=== PATIENT | female | born 1930 | race American Indian/Alaskan Native ===

== ENCOUNTER 2017-05-22 12:12 | Emergency (ER) | payer MEDICARE ==
[2017-05-22 13:41] VITALS: BP 112/79
--- NOTE | 2017-05-22 13:53 | Emergency Department Report ---
ED Medical Clearance HPI - General Chief complaint: Medical Clearance Stated complaint: BLOOD WORK/ADMIT Time Seen by Provider: 05/22/17 13:47 Source: patient Mode of arrival: Ambulatory - History of Present Illness Initial comments: A 87-year-old female here with singing and confusion. Patient has a known history of dementia and is attempting to receive medical clearance to go to a psychiatric facility. According to family she has no change from her baseline behavior and she is currently at her baseline. She has no complaints. -: Gradual Reason for Medical Clearance: medical condition, psychiatric condition Traumatic Symptoms: denies traumatic injury Treatments Prior to Arrival: none Allergies/Adverse reactions: Allergies Allergy/AdvReac Type Severity Reaction Status Date / Time No Known Allergies Allergy Unverified 05/22/17 13:34 ED Review of Systems ROS: Stated complaint: BLOOD WORK/ADMIT Other details as noted in HPI Comment: All other systems reviewed and negative Constitutional: no symptoms reported. denies: chills, fever, malaise ENT: denies: ear pain, throat pain, hearing loss Respiratory: denies: cough, orthopnea Cardiovascular: denies: chest pain, palpitations Gastrointestinal: denies: abdominal pain, nausea Skin: denies: rash, lesions ED Past Medical Hx - Social History Smoking Status: Never Smoker Substance Use Type: None ED Physical Exam - General Limitations: No Limitations General appearance: alert, in no apparent distress - Head Head exam: Present: atraumatic, normocephalic - Eye Eye exam: Present: normal appearance - ENT ENT exam: Present: mucous membranes moist - Neck Neck exam: Present: normal inspection - Respiratory Respiratory exam: Present: normal lung sounds bilaterally. Absent: respiratory distress - Cardiovascular Cardiovascular Exam: Present: regular rate, normal rhythm. Absent: systolic murmur, diastolic murmur, rubs, gallop - GI/Abdominal GI/Abdominal exam: Present: soft, normal bowel sounds - Extremities Exam Extremities exam: Present: normal inspection - Back Exam Back exam: Present: normal inspection - Neurological Exam Neurological exam: Present: alert (oriented 1), other (patient with mild confusion) - Psychiatric Psychiatric exam: Present: normal affect, normal mood - Skin Skin exam: Present: warm, dry, intact, normal color. Absent: rash ED Course Vital Signs 05/22/17 13:35 Temperature 98.4 F Pulse Rate 65 Respiratory 16 Rate Blood Pressure 112/79 O2 Sat by Pulse 100 Oximetry ED Medical Decision Making - Lab Data Result diagrams: 05/22/17 13:45 05/22/17 13:45 Laboratory Results - last 24 hr 05/22/17 05/22/17 05/22/17 13:45 13:45 13:45 WBC 5.1 RBC 4.48 Hgb 13.3 Hct 40.9 MCV 91 MCH 30 MCHC 33 RDW 13.4 Plt Count 145 Lymph % (Auto) 20.8 [place] % (Auto) 8.3 H Eos % (Auto) 0.5 Baso % (Auto) 0.5 Lymph # 1.1 L [place] # 0.4 Eos # 0.0 Baso # 0.0 Seg Neutrophils % 69.9 Seg Neutrophils # 3.6 Sodium 135 L Potassium 4.4 Chloride 99.2 Carbon Dioxide 28 Anion Gap 12 BUN 22 H Creatinine 1.3 H Estimated GFR 47 BUN/Creatinine Ratio 16.92 Glucose 306 H Calcium 8.9 Urine Color Urine Turbidity Urine pH Ur Specific [place] Urine Protein Urine Glucose (UA) Urine Ketones Urine Blood Urine Nitrite Urine Bilirubin Urine Urobilinogen Ur Leukocyte Esterase Urine WBC (Auto) Urine RBC (Auto) U Epithel Cells (Auto) Urine Mucus Urine Opiates Screen Urine Methadone Screen Ur Barbiturates Screen Ur Phencyclidine Scrn Ur Amphetamines Screen U Benzodiazepines Scrn Urine Cocaine Screen U Marijuana (THC) Screen Plasma/Serum Alcohol < 0.01 05/22/17 05/22/17 14:40 14:40 WBC RBC Hgb Hct MCV MCH MCHC RDW Plt Count Lymph % (Auto) [place] % (Auto) Eos % (Auto) Baso % (Auto) Lymph # [place] # Eos # Baso # Seg Neutrophils % Seg Neutrophils # Sodium Potassium Chloride Carbon Dioxide Anion Gap BUN Creatinine Estimated GFR BUN/Creatinine Ratio Glucose Calcium Urine Color Yellow Urine Turbidity Clear Urine pH 5.0 Ur Specific [place] 1.020 Urine Protein <15 mg/dl Urine Glucose (UA) 150 Urine Ketones Neg Urine Blood Neg Urine Nitrite Neg Urine Bilirubin Neg Urine Urobilinogen < 2.0 Ur Leukocyte Esterase Neg Urine WBC (Auto) 1.0 Urine RBC (Auto) 1.0 U Epithel Cells (Auto) 14.0 H Urine Mucus Few Urine Opiates Screen Presumptive negative Urine Methadone Screen Presumptive negative Ur Barbiturates Screen Presumptive negative Ur Phencyclidine Scrn Presumptive negative Ur Amphetamines Screen Presumptive negative U Benzodiazepines Scrn Presumptive negative Urine Cocaine Screen Presumptive negative U Marijuana (THC) Screen Presumptive negative Plasma/Serum Alcohol - Medical Decision Making 87-year-old female with dementia here medical clearance. On clinical exam she has no findings requiring significant workup. Plan to check labs and will clear. Patient's labs show mild hyperglycemia but otherwise she is stable for further treatment at a [facility] facility. Discussed at length with the family and plan to discharge to their care. They will take her for evaluation tomorrow. Portions of this chart were dictated with dictation software. There may be dictation errors contained within this note. ED Disposition Clinical Impression: Hyperglycemia, Dementia Disposition: [id number] TO HOME OR SELFCARE Is pt being admited?: No Condition: Stable Instructions: Dementia (ED)
[2017-05-22 14:09] LABS: Basophils % (Auto) 0.5 % (0.0-1.8); Eosinophils % (Auto) 0.5 % (0.0-4.3); Hematocrit 40.9 % (30.3-42.9); Hemoglobin 13.3 gm/dl (10.1-14.3); Mean Corpuscular HGB Conc 33 % (30-34); Mean Corpuscular Hemoglobin 30 pg (28-32); Mean Corpuscular Volume 91 fl (79-97); Platelet Count 145 K/mm3 (140-440); Red Blood Count 4.48 M/mm3 (3.65-5.03); Red Cell Distribution Width 13.4 % (13.2-15.2); White Blood Count 5.1 K/mm3 (4.5-11.0)
[2017-05-22 14:25] LABS: BUN/Creatinine Ratio 16.92; Calcium 8.9 mg/dL (8.4-10.2); Chloride 99.2 mmol/L (98-107); Potassium 4.4 mmol/L (3.6-5.0)
[2017-05-22 14:45] LABS: Urine Drugs of Abuse Note Disclamer
[2017-05-22 15:01] LABS: Bilirubin,Urine NEG (Negative); Blood,Urine NEG (Negative); Ketones,Urine NEG (Negative); Leukocyte Esterase,Urine NEG (Negative); Mucus,Urine FEW /HPF; Nitrite,Urine NEG (Negative); Protein,Urine <15 mg/dL mg/dL (Negative); Urobilinogen,Urine < 2.0 mg/dL (<2.0)
== END 2017-05-22 15:15 | disposition home or self-care (01) ==
LOC: ED 12:12
DX: F03.90 Unspecified dementia, unspecified severity, without behavioral disturbance, psychotic disturbance, mood disturbance, and anxiety (principal); R73.9 Hyperglycemia, unspecified
CPT/HCPCS: 36415; 80048; 80307; 81001; 85025; 99283; G0480; 80320